=== PATIENT | female | born 1980 | race Caucasian/White ===

== ENCOUNTER 2018-08-13 15:50 | Inpatient (IN) | payer OTHER ==
[2018-08-13 18:16] LABS: ADD MAN DIFF? NO
[2018-08-13 18:20] LABS: BASOPHILS % 0.3 % (0.0-2.0); EOSINOPHILS # 0.1 10^3/ul (0.0-0.5); EOSINOPHILS % 0.5 % (0.0-7.0); HEMATOCRIT 36.7 % (37.0-47.0); LYMPHOCYTES # 2.1 10^3/ul (0.8-2.9); LYMPHOCYTES % 22.2 % (15.0-51.0); MEAN CORPUSCULAR HEMOGLOBIN 28.6 pg (29.0-33.0); MEAN CORPUSCULAR HGB CONC 32.7 g/dl (32.0-37.0); MEAN CORPUSCULAR VOLUME 87.4 fl (82.0-101.0); MEAN PLATELET VOLUME 9.9 fl (7.4-10.4); MONOCYTE # 0.8 10^3/ul (0.3-0.9); NEUTROPHIL # 6.5 10^3/ul (1.6-7.5); NEUTROPHILS % 68.5 % (39.0-77.0); PLATELET COUNT 325 10^3/UL (140-415); RED CELL DISTRIBUTION WIDTH 13.2 % (11.5-14.5)
[2018-08-13 18:20] LABS: WHITE BLOOD COUNT 9.5 10^3/ul (4.8-10.8)
[2018-08-13] MEDS: LACTATED RINGER'S 1,000 ML IV ×2 (18:36→18:37)
[2018-08-13 18:41] LABS: PARTIAL THROMBOPLASTIN TIME 26.2 Sec (23.0-35.0)
[2018-08-13 18:44] LABS: ALANINE AMINOTRANSFERASE 27 IU/L (13-69); ALBUMIN 3.5 g/dl (3.3-4.9); ALKALINE PHOSPHATASE 165 IU/L (42-121); ANION GAP 9 (5-13); ASPARTATE AMINO TRANSFERASE 20 IU/L (15-46); BILIRUBIN,INDIRECT 0.4 mg/dl (0-1.1); BILIRUBIN,TOTAL 0.4 mg/dl (0.2-1.3); BLOOD UREA NITROGEN 7 mg/dl (7-20); CALCIUM 9.7 mg/dl (8.4-10.2); CARBON DIOXIDE 21 mmol/L (21-31); CHLORIDE 107 mmol/L (97-110); CREATININE 0.41 mg/dl (0.44-1.00); Estimated GFR > 60 mL/min (>60); GLUCOSE 54 mg/dl (70-220); POTASSIUM 4.1 mmol/L (3.5-5.1); SODIUM 137 mmol/L (135-144); URIC ACID 3.8 mg/dl (3.1-7.9)
[2018-08-13 18:45] LABS: INR 0.83; PROTIME 11.5 Sec (11.9-14.9); PT RATIO 0.9
[2018-08-13] MEDS: AMPICILLIN 2 GM/NS (PMX) 100 ML IV ×2 (18:51→23:50)
[2018-08-13 19:35] LABS: RUPTURE FETAL MEMBRANES NEGATIVE (NEGATIVE)
[2018-08-13] MEDS: ACETAMINOPHEN 325 MG TAB PO (21:24)
[2018-08-13] MEDS: BETAMET NA PHOS/AC(6 MG/ML) 2 ML INJ SYG IM (22:38)
[2018-08-13] MEDS: AZITHROMYCIN 250 MG TAB PO (22:38)
[2018-08-13 22:41] LABS: ADD UMIC NO; UR ASCORBIC ACID NEGATIVE (NEGATIVE); UR BILIRUBIN (Dip) NEGATIVE (NEGATIVE); UR BLOOD (Dip) NEGATIVE (NEGATIVE); UR CLARITY SLIGHTLY CLOUDY (CLEAR); UR COLOR YELLOW (YELLOW); UR GLUCOSE (Dip) NEGATIVE (NEGATIVE); UR KETONES (Dip) 1+ mg/dL (NEGATIVE); UR LEUKOCYTE ESTERASE (Dip) NEGATIVE Leu/ul (NEGATIVE); UR MUCUS FEW /HPF (NONE SEEN); UR NITRITE (Dip) NEGATIVE (NEGATIVE); UR RBC 1 /HPF (0-5); UR SPECIFIC GRAVITY (Dip) 1.024 (1.003-1.030); UR SQUAMOUS EPITHELIAL CELL FEW /HPF (FEW); UR TOTAL PROTEIN (Dip) NEGATIVE (NEGATIVE); UR UROBILINOGEN (Dip) NEGATIVE (NEGATIVE); UR WBC 1 /HPF (0-5)
[2018-08-13 22:54] LABS: AMPHETAMINE/METHAMPHETAMINE Negative (NEGATIVE); BARBITURATES Negative (NEGATIVE); BENZODIAZEPINES Negative (NEGATIVE); CANNABINOIDS Negative (NEGATIVE); COCAINE Negative (NEGATIVE); OPIATES Negative (NEGATIVE)
[2018-08-14] MEDS: AMPICILLIN 2 GM/NS (PMX) 100 ML IV ×3 (06:02→18:32)
[2018-08-14] MEDS: LACTATED RINGER'S 1,000 ML IV ×2 (06:02→18:32)
[2018-08-14] MEDS: DOCUSATE SODIUM 100 MG CAP PO (08:37)
[2018-08-14 14:54] LABS: RAPID PLASMA REAGIN NONREACTIVE (NR)
[2018-08-14] MEDS: AZITHROMYCIN 500MG/NS (PMX) 250 ML IVPB (22:09)
[2018-08-14] MEDS: BETAMET NA PHOS/AC(6 MG/ML) 2 ML INJ SYG IM (22:11)
[2018-08-15] MEDS: AMPICILLIN 2 GM/NS (PMX) 100 ML IV ×3 (00:18→12:21)
[2018-08-15] MEDS: LACTATED RINGER'S 1,000 ML IV ×2 (01:49→07:59)
[2018-08-15] MEDS: DOCUSATE SODIUM 100 MG CAP PO (09:29)
[2018-08-15] MEDS: AMOXICILLIN 500 MG CAP PO (22:35)
[2018-08-16] MEDS: AMOXICILLIN 500 MG CAP PO ×3 (05:08→21:26)
[2018-08-16] MEDS: DOCUSATE SODIUM 100 MG CAP PO (09:00)
[2018-08-16] MEDS: AZITHROMYCIN 250 MG TAB PO (09:35)
[2018-08-16 23:03] LABS: ALANINE AMINOTRANSFERASE 19 IU/L (13-69); ALBUMIN 3.1 g/dl (3.3-4.9); ALKALINE PHOSPHATASE 118 IU/L (42-121); ANION GAP 4 (5-13); ASPARTATE AMINO TRANSFERASE 16 IU/L (15-46); BILIRUBIN,INDIRECT 0.3 mg/dl (0-1.1); BILIRUBIN,TOTAL 0.3 mg/dl (0.2-1.3); BLOOD UREA NITROGEN 12 mg/dl (7-20); CALCIUM 9.1 mg/dl (8.4-10.2); CARBON DIOXIDE 23 mmol/L (21-31); CHLORIDE 107 mmol/L (97-110); CREATININE 0.51 mg/dl (0.44-1.00); Estimated GFR > 60 mL/min (>60); GLUCOSE 110 mg/dl (70-220); POTASSIUM 3.9 mmol/L (3.5-5.1); SODIUM 134 mmol/L (135-144); TOTAL PROTEIN 5.9 g/dl (6.1-8.1)
[2018-08-17] MEDS: AMOXICILLIN 500 MG CAP PO ×3 (05:32→22:33)
[2018-08-17] MEDS: DOCUSATE SODIUM 100 MG CAP PO (09:50)
[2018-08-17] MEDS: AZITHROMYCIN 250 MG TAB PO (09:50)
[2018-08-17 09:56] LABS: ADD MAN DIFF? NO
[2018-08-17 10:06] LABS: BASOPHILS % 0.3 % (0.0-2.0); EOSINOPHILS # 0.1 10^3/ul (0.0-0.5); EOSINOPHILS % 0.9 % (0.0-7.0); HEMOGLOBIN 11.5 g/dl (12.0-16.0); LYMPHOCYTES # 2.5 10^3/ul (0.8-2.9); MEAN CORPUSCULAR HEMOGLOBIN 28.2 pg (29.0-33.0); MEAN CORPUSCULAR HGB CONC 31.9 g/dl (32.0-37.0); MEAN CORPUSCULAR VOLUME 88.2 fl (82.0-101.0); MONOCYTE # 0.9 10^3/ul (0.3-0.9); MONOCYTES % 7.9 % (0.0-11.0); NEUTROPHIL # 7.2 10^3/ul (1.6-7.5); NEUTROPHILS % 66.5 % (39.0-77.0); NUCLEATED RED BLOOD CELLS # 0.1 10^3/ul (0.0-0.0); NUCLEATED RED BLOOD CELLS% 0.6 /100WBC (0.0-0.0); PLATELET COUNT 308 10^3/UL (140-415); RED BLOOD COUNT 4.08 10^6/ul (4.20-5.40); RED CELL DISTRIBUTION WIDTH 13.8 % (11.5-14.5)
[2018-08-17 10:06] LABS: WHITE BLOOD COUNT 10.8 10^3/ul (4.8-10.8)
[2018-08-17] MEDS: PRENATAL VITAMIN PO (20:04)
[2018-08-18] MEDS: AMOXICILLIN 500 MG CAP PO ×3 (06:14→22:40)
[2018-08-18] MEDS: PRENATAL VITAMIN PO (08:42)
[2018-08-18] MEDS: DOCUSATE SODIUM 100 MG CAP PO (08:42)
[2018-08-18] MEDS: AZITHROMYCIN 250 MG TAB PO (08:42)
[2018-08-19] MEDS: AMOXICILLIN 500 MG CAP PO ×3 (05:01→21:28)
[2018-08-19] MEDS: ACETAMINOPHEN 325 MG TAB PO (06:09)
[2018-08-19] MEDS: DOCUSATE SODIUM 100 MG CAP PO (08:43)
[2018-08-19] MEDS: AZITHROMYCIN 250 MG TAB PO (08:43)
[2018-08-19] MEDS: PRENATAL VITAMIN PO (08:43)
[2018-08-20] MEDS: AMOXICILLIN 500 MG CAP PO ×3 (06:08→21:58)
[2018-08-20] MEDS: ACETAMINOPHEN 325 MG TAB PO (06:09)
[2018-08-20] MEDS: PRENATAL VITAMIN PO (09:43)
[2018-08-20] MEDS: DOCUSATE SODIUM 100 MG CAP PO (09:43)
[2018-08-20] MEDS: AZITHROMYCIN 250 MG TAB PO (09:43)
[2018-08-21 09:11] LABS: CHENODEOXYCHOLIC ACID 2.3 umol/L (< OR = 3.1); CHOLIC ACID 3.2 umol/L (< OR = 1.8); DEOXYCHOLIC ACID <0.5 umol/L (< OR = 2.4); TOTAL BILE ACIDS 5.5 umol/L (< OR = 6.8)
[2018-08-21] MEDS: DOCUSATE SODIUM 100 MG CAP PO (09:14)
[2018-08-21] MEDS: PRENATAL VITAMIN PO (09:14)
[2018-08-21] MEDS: AZITHROMYCIN 250 MG TAB PO (09:14)
[2018-08-22] MEDS: PRENATAL VITAMIN PO (08:14)
[2018-08-22] MEDS: DOCUSATE SODIUM 100 MG CAP PO (08:14)
[2018-08-22] MEDS: DIPHENHYDRAMINE 25 MG CAP PO (09:38)
[2018-08-22] MEDS: ACETAMINOPHEN 325 MG TAB PO (19:55)
[2018-08-23] MEDS: ACETAMINOPHEN 325 MG TAB PO (08:10)
[2018-08-23] MEDS: PRENATAL VITAMIN PO (09:11)
[2018-08-23] MEDS: DOCUSATE SODIUM 100 MG CAP PO (09:11)
[2018-08-23] MEDS: LACTATED RINGER'S 1,000 ML IV ×3 (10:50→22:56)
[2018-08-23] MEDS ORDERED: IBUPROFEN 600 MG TAB PO (11:00)
[2018-08-23] MEDS ORDERED: OXYTOCIN 30 UNITS/LR 500 ML IV ×2 (11:00)
[2018-08-23] MEDS ORDERED: BUTORPHANOL 2 MG INJ IV (11:00)
[2018-08-23] MEDS ORDERED: METHYLERGONOVINE 0.2 MG INJ IM (11:00)
[2018-08-23] MEDS ORDERED: CARBOPROST 250 MCG INJ IM (11:00)
[2018-08-23] MEDS ORDERED: MISOPROSTOL 50 MCG CAPSULE PO (11:00)
[2018-08-23] MEDS ORDERED: MISOPROSTOL 200 MCG TAB PR (11:00)
[2018-08-23] MEDS ORDERED: LIDOCAINE 1% (MPF) 30 ML INJ INJ (11:00)
[2018-08-23] MEDS: MISOPROSTOL 50 MCG CAPSULE PO ×4 (11:18→23:00)
[2018-08-23] MEDS: AMPICILLIN 2 GM/NS (PMX) 100 ML IV (11:23)
[2018-08-23 11:55] LABS: ADD MAN DIFF? NO
[2018-08-23 12:00] LABS: WHITE BLOOD COUNT 11.2 10^3/ul (4.8-10.8)
[2018-08-23 12:00] LABS: BASOPHILS % 0.3 % (0.0-2.0); EOSINOPHILS # 0.1 10^3/ul (0.0-0.5); EOSINOPHILS % 1.1 % (0.0-7.0); HEMATOCRIT 38.2 % (37.0-47.0); HEMOGLOBIN 12.4 g/dl (12.0-16.0); LYMPHOCYTES # 2.1 10^3/ul (0.8-2.9); LYMPHOCYTES % 19.1 % (15.0-51.0); MEAN CORPUSCULAR HEMOGLOBIN 28.4 pg (29.0-33.0); MEAN CORPUSCULAR HGB CONC 32.5 g/dl (32.0-37.0); MEAN CORPUSCULAR VOLUME 87.6 fl (82.0-101.0); MEAN PLATELET VOLUME 9.9 fl (7.4-10.4); MONOCYTE # 0.9 10^3/ul (0.3-0.9); MONOCYTES % 8.1 % (0.0-11.0); NEUTROPHIL # 7.9 10^3/ul (1.6-7.5); NEUTROPHILS % 70.5 % (39.0-77.0); PLATELET COUNT 312 10^3/UL (140-415); RED BLOOD COUNT 4.36 10^6/ul (4.20-5.40); RED CELL DISTRIBUTION WIDTH 13.6 % (11.5-14.5)
[2018-08-23 12:04] LABS: INR 0.76; PROTIME 10.8 Sec (11.9-14.9); PT RATIO 0.8
[2018-08-23 12:05] LABS: PARTIAL THROMBOPLASTIN TIME 25.9 Sec (23.0-35.0)
[2018-08-23 12:38] LABS: HEPATITIS B SURFACE ANTIGEN NEGATIVE (NEGATIVE)
[2018-08-23] MEDS: AMPICILLIN 1 GM/NS (PMX) 50 ML IV ×3 (15:31→23:52)
[2018-08-23 16:23] LABS: RAPID PLASMA REAGIN NONREACTIVE (NR)
[2018-08-23] MEDS: BUTORPHANOL 2 MG INJ IV (23:46)
[2018-08-24] MEDS: LACTATED RINGER'S 1,000 ML IV ×3 (01:22→07:41)
[2018-08-24] MEDS ORDERED: FENTAnyl 2MCG/ML-ROPIV 0.2% 100 ML (01:35)
[2018-08-24] MEDS ORDERED: NALOXONE (0.4 MG/ML) INJ IV ×2 (02:00→09:00)
[2018-08-24] MEDS: FENTAnyl 2MCG/ML-ROPIV 0.2% 100 ML BAG EPI (02:16)
[2018-08-24] MEDS: MISOPROSTOL 50 MCG CAPSULE PO ×2 (03:00→07:00)
[2018-08-24] MEDS: OXYTOCIN 30 UNITS/LR 500 ML IV ×3 (03:21→13:51)
[2018-08-24] MEDS: AMPICILLIN 1 GM/NS (PMX) 50 ML IV ×2 (03:22→07:31)
[2018-08-24] MEDS: ONDANSETRON 4 MG INJ IV (03:28)
[2018-08-24] MEDS: AZITHROMYCIN 500MG/NS (PMX) 250 ML IVPB (07:00)
[2018-08-24] MEDS ORDERED: CEFAZOLIN 2 GM/50 ML (PMX) 50 ML IVPB (07:30)
[2018-08-24] MEDS ORDERED: CEFAZOLIN 1 GM INJ (08:30)
[2018-08-24] MEDS ORDERED: PHENYLephrine (100 MCG/ML) 10ML SYG (08:30)
[2018-08-24] MEDS ORDERED: OXYTOCIN 30 UNITS/LR 500 ML BAG IV (08:30)
[2018-08-24] MEDS ORDERED: CHLOROPROCAINE 3% (MPF) 20 ML INJ (08:30)
[2018-08-24] MEDS ORDERED: FENTAnyl 50 MCG/ML VIAL (08:49)
[2018-08-24] MEDS ORDERED: FENTAnyl 50 MCG/ML VIAL IV ×2 (09:00)
[2018-08-24] MEDS ORDERED: ONDANSETRON 4 MG INJ IV ×2 (09:00)
[2018-08-24] MEDS ORDERED: DIPHENHYDRAMINE 50 MG INJ IV ×2 (09:00)
[2018-08-24] MEDS ORDERED: METOCLOPRAMIDE 10 MG INJ IV (09:00)
[2018-08-24] MEDS ORDERED: ALBUTEROL 0.083% (NEB) 2.5 MG/3 ML AMP HHN (09:00)
[2018-08-24] MEDS ORDERED: HYDROmorphONE 1 MG/5 ML IV SYRINGE IV ×3 (09:00)
[2018-08-24] MEDS ORDERED: morphine SULFATE/PF (10 MG/10 ML) INJ (09:25)
[2018-08-24] MEDS ORDERED: METHYLERGONOVINE 0.2 MG INJ IM (09:30)
[2018-08-24] MEDS ORDERED: OXYCODONE/ACETAMINOPHEN (5/325) TAB PO (09:30)
[2018-08-24] MEDS ORDERED: CARBOPROST 250 MCG INJ IM (09:30)
[2018-08-24] MEDS ORDERED: MISOPROSTOL 200 MCG TAB PR (09:30)
[2018-08-24] MEDS ORDERED: OXYTOCIN 30 UNITS/LR 500 ML IV (09:30)
[2018-08-24] MEDS ORDERED: NACL 0.9% 3 ML SYG IV (09:30)
[2018-08-24] MEDS: CEFAZOLIN 2 GM/50 ML (PMX) 50 ML IVPB ×2 (09:30→17:14)
[2018-08-24] MEDS: KETOROLAC 30 MG INJ IV ×2 (09:43→17:14)
[2018-08-24] MEDS: HYDROmorphONE 0.5 MG/0.5 ML SYG IV ×2 (10:37→11:59)
[2018-08-24] MEDS: IBUPROFEN 600 MG TAB PO ×2 (12:00→18:00)
[2018-08-24] MEDS: SENNA/DOCUSATE NA (8.6MG/50MG) TAB PO (21:18)
[2018-08-24] MEDS: DIPHENHYDRAMINE 50 MG INJ IV (23:50)
[2018-08-25] MEDS: LACTATED RINGER'S 1,000 ML IV ×4 (00:39→17:00)
[2018-08-25] MEDS: CEFAZOLIN 2 GM/50 ML (PMX) 50 ML IVPB ×2 (01:32→10:04)
[2018-08-25] MEDS: KETOROLAC 30 MG INJ IV (02:37)
[2018-08-25] MEDS: IBUPROFEN 600 MG TAB PO ×4 (05:48→17:32)
[2018-08-25 08:17] LABS: ADD MAN DIFF? NO
[2018-08-25 08:21] LABS: WHITE BLOOD COUNT 11.4 10^3/ul (4.8-10.8)
[2018-08-25 08:21] LABS: BASOPHILS % 0.3 % (0.0-2.0); EOSINOPHILS # 0.1 10^3/ul (0.0-0.5); EOSINOPHILS % 0.4 % (0.0-7.0); HEMATOCRIT 32.7 % (37.0-47.0); HEMOGLOBIN 10.4 g/dl (12.0-16.0); LYMPHOCYTES # 1.8 10^3/ul (0.8-2.9); LYMPHOCYTES % 16.2 % (15.0-51.0); MEAN CORPUSCULAR HEMOGLOBIN 28.3 pg (29.0-33.0); MEAN CORPUSCULAR HGB CONC 31.8 g/dl (32.0-37.0); MEAN CORPUSCULAR VOLUME 88.9 fl (82.0-101.0); MEAN PLATELET VOLUME 9.9 fl (7.4-10.4); MONOCYTE # 0.6 10^3/ul (0.3-0.9); NEUTROPHIL # 8.8 10^3/ul (1.6-7.5); NEUTROPHILS % 77.5 % (39.0-77.0); PLATELET COUNT 230 10^3/UL (140-415); RED BLOOD COUNT 3.68 10^6/ul (4.20-5.40); RED CELL DISTRIBUTION WIDTH 14.1 % (11.5-14.5)
[2018-08-25] MEDS: OXYCODONE/ACETAMINOPHEN (5/325) TAB PO ×3 (09:10→21:14)
[2018-08-25] MEDS: SENNA/DOCUSATE NA (8.6MG/50MG) TAB PO ×2 (09:11→21:14)
[2018-08-25] MEDS: FERROUS SULFATE (EC) 325 MG TAB PO (21:14)
[2018-08-26] MEDS: IBUPROFEN 600 MG TAB PO ×4 (00:11→18:57)
[2018-08-26] MEDS: OXYCODONE/ACETAMINOPHEN (5/325) TAB PO ×4 (02:32→21:59)
[2018-08-26] MEDS: SENNA/DOCUSATE NA (8.6MG/50MG) TAB PO ×2 (09:05→21:19)
[2018-08-26] MEDS: LANOLIN HPA 1 PKT TOP (09:05)
[2018-08-26] MEDS: FERROUS SULFATE (EC) 325 MG TAB PO ×2 (09:05→21:19)
[2018-08-27] MEDS: IBUPROFEN 600 MG TAB PO ×3 (00:46→12:12)
[2018-08-27] MEDS: OXYCODONE/ACETAMINOPHEN (5/325) TAB PO ×2 (02:56→11:25)
[2018-08-27] MEDS: SENNA/DOCUSATE NA (8.6MG/50MG) TAB PO (09:23)
[2018-08-27] MEDS: FERROUS SULFATE (EC) 325 MG TAB PO (09:23)
== END 2018-08-27 13:30 | disposition home or self-care (01) | DRG 788 ==
LOC: PP1 08-17 22:41 → L-D 08-23 10:06 → PP1 08-24 13:24
PROC: 10D00Z1 Extraction of Products of Conception, Low, Open Approach (ICD-10-PCS; principal; 2018-08-24 08:00)
DX: O60.13X0 Preterm labor second trimester with preterm delivery third trimester, not applicable or unspecified (principal); O76 Abnormality in fetal heart rate and rhythm complicating labor and delivery; Z3A.34 34 weeks gestation of pregnancy; Z37.0 Single live birth
CPT/HCPCS: 62322; 76815; 76818; 80053; 80076; 80307; 81001; 81003; 83789; 84112; 84560; 85025; 85384; 85610; 85730; 86592; 86850; 86900; 86901; 87081; 87086; 87340; 87591; 99464; J2400

== ENCOUNTER 2018-10-03 08:35 | Emergency (ER) | payer OTHER | END 2018-10-03 09:26 | disposition home or self-care (01) | LOC: FTE 09:26 → E/R 08:35 | DX: O99.73 Diseases of the skin and subcutaneous tissue complicating the puerperium (principal); L73.9 Follicular disorder, unspecified; Z48.01 Encounter for change or removal of surgical wound dressing | CPT/HCPCS: 99283; Z7502 ==

== ENCOUNTER 2018-10-09 19:50 | Emergency (ER) | payer OTHER ==
[2018-10-09] MEDS: SODIUM CHLORIDE 0.9% 1L BAG IV* (21:28)
[2018-10-09 21:35] LABS: ADD MAN DIFF? NO
[2018-10-09] MEDS: CLINDAMYCIN 900 MG/D5W (PMX) 50 ML IVPB (21:37)
[2018-10-09 21:40] LABS: BASOPHIL # 0.1 10^3/ul (0.0-0.1); BASOPHILS % 0.6 % (0.0-2.0); EOSINOPHILS # 0.5 10^3/ul (0.0-0.5); EOSINOPHILS % 5.7 % (0.0-7.0); HEMATOCRIT 40.9 % (37.0-47.0); LYMPHOCYTES # 2.8 10^3/ul (0.8-2.9); LYMPHOCYTES % 34.6 % (15.0-51.0); MEAN CORPUSCULAR HGB CONC 31.8 g/dl (32.0-37.0); MEAN CORPUSCULAR VOLUME 88.1 fl (82.0-101.0); MONOCYTE # 0.8 10^3/ul (0.3-0.9); MONOCYTES % 9.6 % (0.0-11.0); NEUTROPHIL # 3.9 10^3/ul (1.6-7.5); PLATELET COUNT 345 10^3/UL (140-415); RED BLOOD COUNT 4.64 10^6/ul (4.20-5.40); RED CELL DISTRIBUTION WIDTH 14.7 % (11.5-14.5)
[2018-10-09 21:53] LABS: ADD UMIC NO; UR ASCORBIC ACID NEGATIVE (NEGATIVE); UR BILIRUBIN (Dip) NEGATIVE (NEGATIVE); UR BLOOD (Dip) NEGATIVE (NEGATIVE); UR CLARITY SLIGHTLY CLOUDY (CLEAR); UR COLOR STRAW (YELLOW); UR GLUCOSE (Dip) NEGATIVE (NEGATIVE); UR KETONES (Dip) NEGATIVE (NEGATIVE); UR LEUKOCYTE ESTERASE (Dip) NEGATIVE Leu/ul (NEGATIVE); UR NITRITE (Dip) NEGATIVE (NEGATIVE); UR RBC 0 /HPF (0-5); UR SPECIFIC GRAVITY (Dip) 1.012 (1.003-1.030); UR SQUAMOUS EPITHELIAL CELL FEW /HPF (FEW); UR TOTAL PROTEIN (Dip) NEGATIVE (NEGATIVE); UR UROBILINOGEN (Dip) NEGATIVE (NEGATIVE); UR WBC 0 /HPF (0-5)
[2018-10-09 21:57] LABS: ALANINE AMINOTRANSFERASE 30 IU/L (13-69); ALBUMIN 3.9 g/dl (3.3-4.9); ALKALINE PHOSPHATASE 106 IU/L (42-121); ANION GAP 7 (5-13); ASPARTATE AMINO TRANSFERASE 20 IU/L (15-46); BILIRUBIN,INDIRECT 0.4 mg/dl (0-1.1); BILIRUBIN,TOTAL 0.4 mg/dl (0.2-1.3); BLOOD UREA NITROGEN 15 mg/dl (7-20); CALCIUM 9.4 mg/dl (8.4-10.2); CARBON DIOXIDE 28 mmol/L (21-31); CHLORIDE 105 mmol/L (97-110); CREATININE 0.55 mg/dl (0.44-1.00); Estimated GFR > 60 mL/min (>60); GLUCOSE 92 mg/dl (70-220); POTASSIUM 5.1 mmol/L (3.5-5.1); SODIUM 140 mmol/L (135-144); TOTAL PROTEIN 6.9 g/dl (6.1-8.1)
== END 2018-10-10 02:09 | disposition home or self-care (01) ==
LOC: FTE 10-10 02:09
DX: O99.73 Diseases of the skin and subcutaneous tissue complicating the puerperium (principal); L03.311 Cellulitis of abdominal wall
CPT/HCPCS: 36415; 80053; 81001; 81003; 83605; 85025; 87040-91; 96365; 96366; 99284-25

== ENCOUNTER 2018-10-12 18:15 | Emergency (ER) | payer OTHER ==
[2018-10-12 19:20] LABS: ADD MAN DIFF? NO
[2018-10-12 19:21] LABS: BASOPHIL # 0.1 10^3/ul (0.0-0.1); BASOPHILS % 0.8 % (0.0-2.0); EOSINOPHILS # 0.5 10^3/ul (0.0-0.5); EOSINOPHILS % 6.2 % (0.0-7.0); HEMATOCRIT 39.8 % (37.0-47.0); HEMOGLOBIN 12.9 g/dl (12.0-16.0); LYMPHOCYTES # 2.7 10^3/ul (0.8-2.9); LYMPHOCYTES % 34.9 % (15.0-51.0); MEAN CORPUSCULAR HEMOGLOBIN 28.4 pg (29.0-33.0); MEAN CORPUSCULAR HGB CONC 32.4 g/dl (32.0-37.0); MEAN CORPUSCULAR VOLUME 87.7 fl (82.0-101.0); MEAN PLATELET VOLUME 9.2 fl (7.4-10.4); MONOCYTE # 0.6 10^3/ul (0.3-0.9); NEUTROPHIL # 3.8 10^3/ul (1.6-7.5); NEUTROPHILS % 49.7 % (39.0-77.0); PLATELET COUNT 309 10^3/UL (140-415); RED BLOOD COUNT 4.54 10^6/ul (4.20-5.40); RED CELL DISTRIBUTION WIDTH 14.8 % (11.5-14.5)
[2018-10-12 19:21] LABS: WHITE BLOOD COUNT 7.7 10^3/ul (4.8-10.8)
[2018-10-12] MEDS: DEXAMETHASONE 10 MG/ML 1 ML INJ IV (19:27)
[2018-10-12] MEDS: DIPHENHYDRAMINE 50 MG INJ IV (19:34)
[2018-10-12 19:38] LABS: ALANINE AMINOTRANSFERASE 25 IU/L (13-69); ALBUMIN 4.1 g/dl (3.3-4.9); ALBUMIN/GLOBULIN RATIO 1.46; ALKALINE PHOSPHATASE 111 IU/L (42-121); ANION GAP 10 (5-13); ASPARTATE AMINO TRANSFERASE 26 IU/L (15-46); BILIRUBIN,INDIRECT 0.3 mg/dl (0-1.1); BILIRUBIN,TOTAL 0.3 mg/dl (0.2-1.3); BLOOD UREA NITROGEN 13 mg/dl (7-20); CALCIUM 9.3 mg/dl (8.4-10.2); CARBON DIOXIDE 24 mmol/L (21-31); CHLORIDE 106 mmol/L (97-110); CREATININE 0.53 mg/dl (0.44-1.00); Estimated GFR > 60 mL/min (>60); GLUCOSE 103 mg/dl (70-220); POTASSIUM 4.5 mmol/L (3.5-5.1); SODIUM 140 mmol/L (135-144); TOTAL PROTEIN 6.9 g/dl (6.1-8.1)
== END 2018-10-12 20:18 | disposition home or self-care (01) ==
LOC: FTE 18:15
DX: O99.73 Diseases of the skin and subcutaneous tissue complicating the puerperium (principal); L03.311 Cellulitis of abdominal wall
CPT/HCPCS: 36415; 80053; 85025; 96374; 96375; 99284-25

== ENCOUNTER 2018-10-15 17:24 | Emergency (ER) | payer OTHER | END 2018-10-15 19:27 | disposition home or self-care (01) | LOC: FTE 17:24 | DX: L73.9 Follicular disorder, unspecified (principal) | CPT/HCPCS: 99283; Z7502 ==

== ENCOUNTER 2018-12-05 07:48 | Emergency (ER) | payer OTHER | END 2018-12-05 09:41 | disposition home or self-care (01) | LOC: FTE 07:48 | DX: L29.9 Pruritus, unspecified (principal) | CPT/HCPCS: 99282 ==